=== PATIENT | female | born 2000 ===

== ENCOUNTER 2021-10-24 19:12 | Emergency (ER) | payer OTHER, SELFPAY ==
[2021-10-24 20:15] VITALS: BP 141/100; PULSE 80; RESP 18; TEMP 36.7; O2SAT 99; BMI 42.3
--- NOTE | 2021-10-24 20:20 | DI.RAD.S_ITS ---
PROCEDURE: XR KNEE LT 3V INDICATIONS: left patellar dislocation TECHNIQUE: 3 views of the knee were acquired. COMPARISON: None. FINDINGS: Bones: No fractures but there is a dislocation of the patella laterally. No suspicious bony lesions. Soft tissues: No joint effusion. No suspicious soft tissue calcifications. Note is made of what may be a radiodense foreign body in the soft tissues ventral to the patella seen on the lateral and sunrise view. IMPRESSION: Lateral patellar dislocation without identified fracture. Possible radiodense foreign body within the soft tissues directly ventral to the patellar margin seen on 2 of the three views. Dictated by: Johnie Ma M.D. on 10/24/2021 at 20:55 Approved by: Johnie Ma M.D. on 10/24/2021 at 20:56
--- NOTE | 2021-10-24 21:30 | DI.RAD.S_ITS ---
PROCEDURE: XR KNEE LT 3V INDICATIONS: post patella reduction TECHNIQUE: 3 views of the knee were acquired. COMPARISON: Merged With [facility], , XR KNEE LT 3V, 10/24/2021, 20:09. FINDINGS: Bones: No fractures or dislocations. No suspicious bony lesions. Soft tissues: No joint effusion. No suspicious soft tissue calcifications. IMPRESSION: Calcification within the soft tissues ventral to the patella not appear to represent foreign body material. Successful reduction of lateral patellar dislocation, no osseous trauma found as result. Dictated by: Johnie Ma M.D. on 10/24/2021 at 21:50 Approved by: Johnie Ma M.D. on 10/24/2021 at 21:51
--- NOTE | 2021-10-24 21:30 | ED.LOWEXIN ---
HPI - Extremity Injury (Lower) General Chief Complaint: Extremity Injury, Lower Stated Complaint: Dislocated Left Knee, Fall Time Seen by Provider: 10/24/21 21:22 Source: patient Mode of arrival: Wheelchair Limitations: no limitations History of Present Illness HPI Narrative: Patient is a 21-year-old female who is here for evaluation of what was initially described as a left knee dislocation. Turns out it is a left patella dislocation. She has had issues with this in the past. She has dislocated her patella in the past. It has been going on since she was a kid although she normally can push it back on her own. Over the past 24 hours it has happened more frequently. She thinks it is because there was an incident at the [facility] where she was working where the fire alarm went off and she got up quickly and then actually fell landing on her left knee she was instructed by the camp staff to come and have it evaluated. Review of Systems Musculoskeletal Musculoskeletal: Reports system reviewed and no additional complaints, except as documented Integumentary/Breasts Skin/Breast: Reports system reviewed and no additional complaints, except as documented Neurologic Neurologic: Reports system reviewed and no additional complaints, except as documented Hematologic/Lymphatic On Anticoagulants: No Patient History Medical History Healthy adult Social History Smoking Status: Never smoker Smoking Status: Never smoker alcohol intake frequency: 0-2 drinks per day Substance Use Type: does not use Exam Initial Vital Signs Initial Vital Signs: Vital Signs Temperature 98.1 F 10/24/21 20:15 Pulse Rate 80 10/24/21 20:15 Respiratory Rate 18 10/24/21 20:15 Blood Pressure 141/100 H 10/24/21 20:15 Pulse Oximetry 99 10/24/21 20:15 Oxygen Delivery Method 10/24/21 20:15 Const General: cooperative and comfortable Skin General: no rashes or lesions noted Neuro General: patient alert and patient awake Sensory Exam: no sensory deficits noted Extrem Other: Lateral displacement of the left patella. Procedures Orthopedic Joint Reduction Joint #1: Time Out Performed: Yes Side: left Joint Reduction Location: knee/patella Analgesia: none Technique used: direct manipulation Post-reduction neuro exam: no change Post-reduction vascular: no change Post Reduction X-Ray Obtained: Yes Post Reduction X-Ray Results: reduced Splint Applied: Yes Patient Tolerated Procedure: Well Orthopedic Splinting/Casting Injury #1: Side: left Lower Extremity Injury Location: knee Lower Extremity Immobilizer: knee immobilizer Post splinting neuro exam: intact Post splinting vascular exam: intact Placed by: Nursing Course Orders Ordered: ED Orders 10/24/21 20:20 XR knee LT 3V Stat 10/24/21 21:30 XR knee LT 3V Stat Vital Signs Vital signs: Vital Signs - 8 hr 10/24/21 20:15 Temperature 98.1 F Pulse Rate 80 Respiratory Rate 18 Blood Pressure 141/100 H Pulse Oximetry 99 Oxygen Delivery Method Room Air MDM - Extremity Injury (Lower) Imaging Data Extremity x-ray #1: Radiologist's Impression: [address] [address] XRay Report Signed Patient: Sabrina Meng MR#: [id number] : 2000 Acct:[id number] Age/Sex: 21 / F Date of Service: 10/24/21 Loc: ED Accession Number: [id number] ?? Procedure: XR knee LT 3V Ordering Provider: Meliton Watkins D.O. PROCEDURE:? XR KNEE LT 3V ? INDICATIONS:? left patellar dislocation ? TECHNIQUE:? 3 views of the knee were acquired.? ? COMPARISON:? None. ? FINDINGS:? ? Bones:? No fractures but there is a dislocation of the patella laterally.? No suspicious bony lesions.? ? Soft tissues:? No joint effusion.? No suspicious soft tissue calcifications.? Note is made of what may be a radiodense foreign body in the soft tissues ventral to the patella seen on the lateral and sunrise view. ? ? IMPRESSION:? Lateral patellar dislocation without identified fracture. Possible radiodense foreign body within the soft tissues directly ventral to the patellar margin seen on 2 of the three views.? ? Dictated by: Johnie Ma M.D. on 10/24/2021 at 20:55 ? ? Approved by: Johnie Ma M.D. on 10/24/2021 at 20:56 Extremity x-ray #2: Radiologist's Impression: [address] [address] XRay Report Signed Patient: Sabrina Meng MR#: [id number] : 2000 Acct:[id number] Age/Sex: 21 / F Date of Service: 10/24/21 Loc: ED Accession Number: [id number] ?? Procedure: XR knee LT 3V Ordering Provider: Meliton Watkins D.O. PROCEDURE:? XR KNEE LT 3V ? INDICATIONS:? post patella reduction ? TECHNIQUE:? 3 views of the knee were acquired.? ? COMPARISON:? [facility], CR, XR KNEE LT 3V, 10/24/2021, 20:09. ? FINDINGS:? ? Bones:? No fractures or dislocations.? No suspicious bony lesions.? ? Soft tissues:? No joint effusion.? No suspicious soft tissue calcifications.? ? ? IMPRESSION:? Calcification within the soft tissues ventral to the patella not appear to represent foreign body material.? Successful reduction of lateral patellar dislocation, no osseous trauma found as result. ? ? Dictated by: Johnie Ma M.D. on 10/24/2021 at 21:50 ? ? Approved by: Johnie Ma M.D. on 10/24/2021 at 21:51?? MDM Narrative Medical decision making narrative: This was an obvious patella dislocation confirmed with x-ray. It was reduced easily. She was placed in a knee immobilizer. Postreduction x-ray showed that it is now back in place. Informed patient that she does need to follow-up with orthopedics go she will most likely need surgical intervention. We discussed return precautions and follow-up instructions. She expressed understanding and agreement. Discharge Plan Departure Patient Disposition: Home Clinical Impression: Dislocation of patella, left, closed Instructions: How to Use a Knee Immobilizer, DI for Patellar Dislocation Activity Restrictions/Additional Instructions: The knee immobilizers for your use like we discussed. You can walk on your left leg. You do need to be evaluated by Orthopedic surgery at some point in the future. Return to the emergency department for any new or worsening symptoms. Referrals: Miscellaneous,Doctor, [Primary Care Provider] - Visit Report Forms: Patient Portal/API
== END 2021-10-24 22:18 | disposition home or self-care (01) ==
PROVIDERS: Emergency Provider Emergency Medicine
DX: S83.105A Unspecified dislocation of left knee, initial encounter (principal)
CPT/HCPCS: 27550; 73562; 99282; 99283